=== PATIENT | male | born 1985 | race Caucasian/White ===

== ENCOUNTER → 2017-02-20 | Outpatient (REF) ==
[~2017-02-20] MED LIST: NO HOME MEDICATIONS; NORCO 325 MG-51 TAB PO; PREDNISONE20 MG PO; PROTONIX 40MG T40 MG PO; RT ADVAIR 228 DISKUS IH
== END ==
LOC: WSOH 12:47
DX: Z01.89 Encounter for other specified special examinations (principal)

== ENCOUNTER → 2017-06-23 | Outpatient (REF) | LOC: WSOH 15:52 | DX: Z02.89 Encounter for other administrative examinations (principal) ==

== ENCOUNTER 2017-07-12 11:11 | Outpatient (RCR) | payer OTHER | END 2017-07-21 14:02 | disposition still patient (30) | LOC: WSOH 11:11 | DX: M25.512 Pain in left shoulder (principal); X50.1XXA Overexertion from prolonged static or awkward postures, initial encounter; Y99.0 Civilian activity done for income or pay ==

== ENCOUNTER 2017-09-07 10:17 | Outpatient (RCR) | payer OTHER | END 2017-09-25 14:11 | LOC: WSOH 10:17 | DX: Z51.89 Encounter for other specified aftercare (principal); M25.511 Pain in right shoulder | CPT/HCPCS: G0283-GP; J3301 ==

== ENCOUNTER → 2017-09-12 | Outpatient (CLI) | payer OTHER | LOC: COL.RAD 14:00 | DX: M75.111 Incomplete rotator cuff tear or rupture of right shoulder, not specified as traumatic (principal) ==

== ENCOUNTER 2020-04-07 13:58 | Outpatient (RCR) | payer OTHER | END 2020-07-06 | disposition home or self-care (01) | LOC: WSOH | DX: S39.011A Strain of muscle, fascia and tendon of abdomen, initial encounter (principal); Y99.0 Civilian activity done for income or pay; Z87.891 Personal history of nicotine dependence; Z98.890 Other specified postprocedural states ==

== ENCOUNTER 2021-10-11 08:10 | Outpatient (RCR) | payer OTHER | END 2021-10-22 | disposition home or self-care (01) | LOC: WSOH | DX: M25.562 Pain in left knee (principal); Z87.891 Personal history of nicotine dependence; Z98.890 Other specified postprocedural states; Y99.0 Civilian activity done for income or pay ==